=== PATIENT | female | born 1985 | race Two or more races ===

== ENCOUNTER 2019-02-17 09:32 | Day surgery (SDC) | payer BC ==
[~2019-02-17] VITALS: Ht 160 cm; Wt 53.1 kg
[2019-02-17] VITALS (8 sets, daily range): BP systolic 96–116; BP diastolic 49–77
[~2019-02-17 09:32] MED LIST: LR 1000ml 1,000 ML IVLG SCH
[2019-02-17] MEDS ORDERED: NKM (10:35)
[2019-02-17] MEDS ORDERED: LR 1000ml 1,000 ML IVLG SCH (10:56)
[2019-02-17] MEDS ORDERED: Lidocaine 1% MPF 10mg/ml 5ml ONE (11:00)
[2019-02-17] MEDS ORDERED: Atropine Sulfate 0.4mg/ml inj IVP PRN (11:00)
[2019-02-17] MEDS ORDERED: LR 1000ml ONE (11:00)
[2019-02-17] MEDS ORDERED: DiphenhydrAMINE 50mg/ml Inj IVP PRN (11:00)
[2019-02-17] MEDS ORDERED: fentaNYL 100 mcg/2 mL IV PRN (11:00)
[2019-02-17] MEDS ORDERED: Midazolam 2mg/2ml Inj IVP PRN (11:00)
[2019-02-17] MEDS ORDERED: Propofol 200mg/20ml IV ONE (11:00)
--- NOTE | 2019-02-17 11:00 | Anethesia Preoperative Eval ---
Anesthesia Pre-op PMH/ROS General Date of Evaluation: Feb 17, 2019 Time of Evaluation: 10:51 Anesthesiologist: paloma ASA Score: ASA 2 Mallampati Score Class I : Soft palate, uvula, fauces, pillars visible Class II: Soft palate, uvula, fauces visible Class III: Soft palate, base of uvula visible Class IV: Only hard plate visible Mallampati Classification: Class II Surgeon: karina Diagnosis: rectal pain Surgical Procedure: colonoscopy Anesthesia History: none Social History: smoking - nonsmoker Family History: no anesthesia problems Allergies: Coded Allergies: No Known Allergies (Unverified , 02/14/19) Medications: see eMAR Patient NPO?: Yes Past Medical History Gastrointestinal/Genitourinary: Reports: GERD, other PSxH Narrative: appendectomy Anesthesia Pre-op Phys. Exam Physician Exam Last Vital Signs Date Time Temp Pulse Resp B/P (MAP) Pulse Ox O2 Delivery O2 Flow Rate FiO2 02/17/19 10:42 97.4 66 18 96/68 100 Room Air Constitutional: NAD Neurologic: CN 2-12 intact Cardiovascular: RRR Respiratory: CTA Gastrointestinal: S/NT/ND Airway Exam Mallampati Score: Class II MO: full Neck: flexible TMD: 2fb ROM: full Anesthesia Pre-op A/P Labs Labs Test 02/17/19 09:45 Urine HCG, Qualitative Negative (NEGATIVE) Urine Test Test 02/17/19 09:45 Urine HCG, Qualitative Negative (NEGATIVE) Risk Assessment & Plan Assessment: asa2 Plan: mac Status Change Before Surgery: No Pre-Antibiotics Drug: Vijaya Alvarado MD Feb 17, 2019 11:00
--- NOTE | 2019-02-17 11:11 | Pre-Procedure Note/Attestation ---
Pre-Procedure Note/Attestation Complete Prior to Procedure Planned Procedure: not applicable Procedure Narrative: colonoscopy Indications for Procedure Pre-Operative Diagnosis: abd pain Attestation I attest that I discussed the nature of the procedure; its benefits; risks and complications; and alternatives (and the risks and benefits of such alternatives ), prior to the procedure, with the patient (or the patient's legal goodwill representative). I attest that, if there was a reasonable possibility of needing a blood transfusion, the patient (or the patient's legal goodwill representative) was given the [facility] standardized written summary, pursuant to the [employer]y [employer]ylie Blood Safety Act ([place] Health and Safety Code # 1645, as amended). I attest that I re-evaluated the patient just prior to the surgery and that there has been no change in the patient's H&P, except as documented below: Perez Juan MD Feb 17, 2019 11:11
--- NOTE | 2019-02-17 11:12 | Short Stay Surgery H&P ---
History of Present Illness History of Present Illness Chief Complaint abd pain HPI Marli Fischer is a 33 year old female who was admitted on for Rectal Pain Patient History Allergies: Coded Allergies: No Known Allergies (Unverified , 02/14/19) PAST MEDICAL HISTORY: (1) Ovarian cyst Medication History Scheduled No Known Medications* (NKM - No Known Medications*), 0 ., (Reported) Review of Systems Cardiovascular: Reports: no symptoms Respiratory: Reports: no symptoms Skeletal: Reports: no symptoms Gastrointestinal: Reports: no symptoms Genitourinary: Reports: no symptoms Neurologic: Reports: no symptoms Endocrine: Reports: no symptoms Hematologic: Reports: no symptoms Physical Exam Vital Signs Last Vital Signs Date Time Temp Pulse Resp B/P (MAP) Pulse Ox O2 Delivery O2 Flow Rate FiO2 02/17/19 10:42 97.4 66 18 96/68 100 Room Air Labs Laboratory Tests Test 02/17/19 09:45 Urine HCG, Qualitative Negative (NEGATIVE) Skin: normal HENT: normal Heart: normal Lungs: normal Abdomen: normal Extremities: normal Plan Plan of Care colonoscopy Attestation Are the patient's medical conditions optimized for surgery? Attestation Response: yes Perez Juan MD Feb 17, 2019 11:12
--- NOTE | 2019-02-17 12:01 | Endoscopy Procedure Note ---
Endoscopy Procedure Note General Indication for Procedure: abd pain Procedures Performed: colonoscopy Operative Findings/Diagnosis: 24 polyps Specimen: yes Pt Tolerated Procedure Well: Yes Estimated Blood Loss: none Anesthesia Anesthesiologist: edwige Anesthesia: MAC Inserted Devices Implant(s) used?: No Quality Quality of Bowel Preparation: Good Did scope reach the cecum?: Yes Was there any complications?: No GI Core Measures 50 yrs or older w/o bx or poly: No 10yrs. F/U recommended: Yes If not recommended, why?: Above average risk 18 years or older w/prev. colo: No Perez Juan MD Feb 17, 2019 12:01
--- NOTE | 2019-02-17 12:18 | Immediate Post-Op Evaluation ---
Immediate Post-Op Evalulation Immediate Post-Op Evalulation Procedure: colonoscopy w/bx Date of Evaluation: Feb 17, 2019 Time of Evaluation: 12:16 IV Fluids: 550ml lr Blood Products: none Estimated Blood Loss: negligible Blood Pressure Systolic: 103 Blood Pressure Diastolic: 59 Pulse Rate: 69 Respiratory Rate: 18 O2 Sat by Pulse Oximetry: 100 Temperature (Fahrenheit): 98.6 Pain Score (1-10): 0 Nausea: No Vomiting: No Complications none Patient Status: awake, reacts, patent Hydration Status: adequate Drug: Vijaya Alvarado MD Feb 17, 2019 12:18
--- NOTE | 2019-02-17 12:19 | 48 Hour Post Anesthesia Eval ---
Post Anesthesia Evaluation Procedure: colonoscopy w/bx Date of Evaluation: Feb 17, 2019 Time of Evaluation: 12:18 Blood Pressure Systolic: 116 0: 70 Pulse Rate: 71 Respiratory Rate: 18 Temperature (Fahrenheit): 98.6 O2 Sat by Pulse Oximetry: 100 Airway: patent Nausea: No Vomiting: No Pain Intensity: 0 Hydration Status: adequate Cardiopulmonary Status: stable Mental Status/LOC: patient returned to baseline Post-Anesthesia Complications: none Follow-up care needed: N/A Vijaya Segura MD Feb 17, 2019 12:19
--- NOTE | 2019-02-17 19:15 | Procedure Note ---
DATE OF PROCEDURE: 02/17/2019 SURGEON: Perez Juan M.D. PROCEDURE: Colonoscopy with snare polypectomy and biopsy. ANESTHESIA: Per Dr. Bo. INSTRUMENT: Olympus adult flexible colonoscope. INDICATION: Abdominal pain. REASON FOR PROCEDURE: The procedure, risks, benefits, and possible consequences, including hemorrhage, aspiration, perforation and infection, and alternative treatments, were explained to the patient/legal guardian by Dr. Perez Juan and the patient/legal guardian understood and accepted these risks. DESCRIPTION OF PROCEDURE: After informed consent was obtained and the patient was adequately sedated, first rectal exam was performed, which was normal. Then, the scope was advanced from the rectum into the cecum and subsequently terminal ileum. Quality of prep was very good. The patient had a total of 24 polyps removed in this colonoscopy examination. Fourteen in the sigmoid, 3 in the cecum, 5 in the ascending, and 2 in the transverse. Three or four of these polyps in the ascending colon were removed with a hot snare polypectomy. Otherwise, the rest of them removed with the biopsy forceps technique. They were all less than 1 cm in size. There was no any other pathology seen. Retroflexion of rectum showed evidence of small nonbleeding internal hemorrhoids. SUMMARY OF FINDINGS: Total of 24 polyps removed. See above for details. RECOMMENDATIONS: 1. Follow path. 2. Recommend repeat colonoscopy in 1 year. Perez Juan M.D. DR: CARMEN JOB#: [id number] CC:
== END 2019-02-17 13:30 | disposition home or self-care (01) ==
LOC: GAS 09:32
DX: R10.9 Unspecified abdominal pain (principal); K63.5 Polyp of colon; K64.8 Other hemorrhoids; K21.9 Gastro-esophageal reflux disease without esophagitis; Z90.89 Acquired absence of other organs; D12.5 Benign neoplasm of sigmoid colon
CPT/HCPCS: 45380; 45385; 81025; J2704; J7120; 94003; 94150